=== PATIENT | female | born 1970 | race Caucasian/White ===

== ENCOUNTER → 2020-12-02 | Outpatient (CLI) | payer BC, OTHER ==
[2014-12-08 21:15] VITALS: BP 131/61
[~2020-12-02] MED LIST: ASPI-482 PO; BIOT1CAP3 PO; ESTR0.5T PO; GABA-585 PO; GUAR1TAB6 PO; HYDR25TA PO; HYDR2TAB31 PO; LACT1CAP6 PO; LEVO200T5 PO; METF10007 PO; MULT-18 PO; NITR100C62 PO; OMEP40CA45 PO; PRAV20TA2 PO; UBID200C7 PO; VITA-47 PO
--- NOTE | 2020-12-02 17:28 | RAD ---
EXAM: Maxillofacial bone CT without contrast. HISTORY: Chronic sinusitis. TECHNIQUE: Computed tomographic images of the maxillofacial bones were obtained without contrast. *One or more of the following individualized dose reduction techniques were utilized for this examina tion: 1. Automated exposure control. 2. Adjustment of the mA and/or kV according to patient size. 3. Use of iterative reconstruction technique. COMPARISON: None. FINDINGS: There is minimal mucosal thickening involving the superior medial right maxillary sinus. Th ere is slight attenuation of the ostiomeatal units. There is minimal rightward nasal septal deviation . There is no sinus opacification or air-fluid level. There is no sinus wall erosion or sinus wall th ickening. The temporomandibular joints are intact. There is mild incidental torus palatini. The orbit s and mastoid air cells are unremarkable. There is no acute finding involving the visualized brain. IMPRESSION: Minimal right maxillary sinus mucosal thickening and attenuation of the ostiomeatal units . Electronically signed by: Casie Griffith MD (12/02/2020 5:25 PM) [facility]
== END ==
LOC: CT 15:24
PROVIDERS: ATTEND Otolaryngology
DX: J32.4 Chronic pansinusitis (principal); J34.2 Deviated nasal septum; M27.0 Developmental disorders of jaws
CPT/HCPCS: 70486

== ENCOUNTER 2021-01-10 19:39 | Emergency (ER) | payer BC, OTHER ==
[~2021-01-10] VITALS: Ht 170.2 cm; Wt 75.6 kg
[2021-01-10 19:50] VITALS: BP 137/88
[2021-01-10] MEDS ORDERED: oxyCODONE/APAP 5/325 1 TAB TABLET PO ONE (20:15)
--- NOTE | 2021-01-10 20:18 | PHYS DOC ---
Past History Past Medical History: Arthritis, Diabetes, Fibromyalgia, GERD, Hypothyroid, Liver Disease, UTI, Other Past Surgical History: Hysterectomy, Other Smoking: Non-smoker Alcohol Use: Occasionally Drug Use: None Adult General Chief Complaint Chief Complaint: LOWER EXT PAIN HPI HPI Patient is a 50-year-old female with a past medical history significant for diabetes, fibromyalgia and peripheral neuropathy who presents to the emergency department with a chief complaint of tingling in her left foot. States it has been off and on for the last 3 weeks. States it is not stopping her from any daily activities but called her doctor and was told to come to the emergency department. States she also has overall generalized body pains because of her fibromyalgia. Denies any recent travel, traumas, illnesses, fevers, chest pain, shortness of breath, abdominal pain, nausea, vomiting, dysuria, hematuria, blood in the stool. Denies any other numbness/weakness/tingling/slurred speech/confusion or other strokelike symptoms. Denies any history of heart attack or stroke. States she is able to sit, stand and walk without issue but just feels tingly when she walks. States she kind of felt funny come into the ER but came because her doctor told her to. Review of Systems Review of Systems Review of systems otherwise unremarkable except noted in HPI Allergies Allergies Allergies Coded Allergies Type Severity Reaction Last Updated Verified morphine Allergy Severe SOA 12/08/14 Yes Penicillins Allergy Intermediate ITCHING 12/08/14 Yes amoxicillin Allergy Intermediate ITCHING 12/08/14 Yes Physical Exam Physical Exam Constitutional: Well developed, well nourished, no acute distress, non-toxic appearance. [] HENT: Normocephalic, atraumatic, bilateral external ears normal, oropharynx moist, no oral exudates, nose normal. [] Eyes: PERRLA, EOMI, conjunctiva normal, no discharge. [] Neck: Normal range of motion, no tenderness, supple, no stridor. [] Cardiovascular:Heart rate regular rhythm, no murmur [] Lungs & Thorax: Bilateral breath sounds clear to auscultation [] Abdomen: Bowel sounds normal, soft, no tenderness, no masses, no pulsatile masses. [] Skin: Warm, dry, no erythema, no rash. [] Back: No tenderness, no CVA tenderness. [] Extremities: No tenderness, no cyanosis, no clubbing, ROM intact, no edema. [] Neurologic: Alert and oriented X 3, normal motor function, normal sensory function, no focal deficits noted. [] Psychologic: Affect normal, judgement normal, mood normal. [] EKG EKG [] Radiology/Procedures Radiology/Procedures [] Heart Score C/O Chest Pain: No Risk Factors: Risk Factors: DM, Current or recent (<one month) smoker, HTN, HLP, family history of CAD, obesity. Risk Scores: Risk Factors: DM, Current or recent (<one month) smoker, HTN, HLP, family history of CAD, obesity. Course & Med Decision Making Course & Med Decision Making Patient is a 50-year-old female who presents with some tingling in the lower left extremity for the last couple of weeks Vital signs not concerning. Physical exam noted above. No focal neurologic deficits. Neurovascular exam intact. Patient able to sit, stand and walk without issue. Patient stated if she just had some pain relief she would probably be okay until she sees her primary care physician. Discussed all findings with patient and reassured that vital signs looked reassuring as did her exam. Patient stated she would prefer not to have any labs or anything drawn since she does agree that she is feeling okay but inquired about some pain medicine. Given Percocet in the emergency department. Advised to follow-up tomorrow with primary care physician. Gave return precautions to the ED. Patient grateful, verbalized understanding and agreed with plan of discharge. [] Dragon Disclaimer Dragon Disclaimer This electronic medical record was generated, in whole or in part, using a voice recognition dictation system. Departure Departure: Impression: Primary Impression: Numbness and tingling of leg Disposition: 01 HOME / SELF CARE / HOMELESS Condition: GOOD Referrals: JOSEMANUEL MAYER DO (PCP) Additional Instructions: Thank you for coming to the emergency department today to discuss your situation. As discussed your vital signs were reassuring. Your neurologic and vascular exams were also reassuring. You are able to sit, stand and walk without issue. You are given pain medication at your request. We discussed all your findings and came up with the plan together including following up with your primary care physician first thing tomorrow to discuss your ED visit and set up a follow-up visit. Please come back to the emergency department immedi ately with any new or concerning symptoms as discussed. DORI SAEZ MD January 10, 2021 20:18
== END 2021-01-10 20:30 | disposition home or self-care (01) ==
LOC: ER 19:39
DX: R20.0 Anesthesia of skin (principal); Z88.0 Allergy status to penicillin; Z88.6 Allergy status to analgesic agent; Z88.1 Allergy status to other antibiotic agents
CPT/HCPCS: 99282-25

== ENCOUNTER → 2021-03-25 | Outpatient (CLI) | payer BC, OTHER ==
[~2021-03-25] MED LIST changes: -OMEP40CA45 PO; +OMEP40CA7 PO
[2021-03-25 16:47] LABS: ALBUMIN 3.9 g/dL (3.4-5.0); DIRECT BILIRUBIN 0.1 mg/dL (0.0-0.2); TOTAL BILIRUBIN 0.3 mg/dL (0.2-1.0)
== END ==
LOC: LAB 15:44
PROVIDERS: ATTEND Internal Medicine Gastroenterology
DX: R94.5 Abnormal results of liver function studies (principal)
CPT/HCPCS: 36415; 80076; 86803; 87340

== ENCOUNTER → 2021-11-19 | Outpatient (CLI) | payer BC, OTHER | LOC: LAB 16:13 | PROVIDERS: ATTEND Internal Medicine Gastroenterology | DX: K75.81 Nonalcoholic steatohepatitis (NASH) (principal); K74.60 Unspecified cirrhosis of liver | CPT/HCPCS: 36415 ==

== ENCOUNTER → 2021-12-10 | Outpatient (CLI) | payer BC, OTHER ==
[2021-12-10 14:39] LABS: ALBUMIN 3.6 g/dL (3.4-5.0); DIRECT BILIRUBIN 0.1 mg/dL (0.0-0.2); TOTAL BILIRUBIN 0.2 mg/dL (0.2-1.0); TOTAL PROTEIN 6.2 g/dL (6.4-8.2)
== END ==
LOC: LAB 13:01
PROVIDERS: ATTEND Internal Medicine Gastroenterology
DX: R94.5 Abnormal results of liver function studies (principal)
CPT/HCPCS: 36415; 80076; 86803; 87340

== ENCOUNTER 2021-12-23 11:34 | Emergency (ER) | payer BC, OTHER ==
[~2021-12-23] VITALS: Ht 167.6 cm; Wt 65.9 kg
[2021-12-23] MEDS ORDERED: KETOROLAC 30 MG/ML VIAL. IM ONE (12:45)
[2021-12-23] MEDS ORDERED: DEXAMETHASONE 4 MG TABLET PO ONE (12:45)
[2021-12-23] MEDS ORDERED: traMADol 50 MG TABLET PO ONE (12:45)
[2021-12-23] MEDS ORDERED: ORPHENADRINE CITRATE 60 MG/2 ML VIAL. IM ONE (12:45)
[2021-12-23] MEDS ORDERED: TRAM50TA PO (12:48)
[2021-12-23] MEDS ORDERED: ORPH-16 PO (12:48)
--- NOTE | 2021-12-23 12:50 | PHYS DOC ---
Past History Past Medical History: Arthritis, Diabetes, Fibromyalgia, GERD, Hypothyroid, Liver Disease, UTI, Other Additional Past Medical Histor: CHRONIC PAIN, FINCH, MAST CELL DISEASE, DDD, EBV Past Surgical History: Gastric Bypass, Hysterectomy, Other Additional Past Surgical Histo: L-KNEE, spinal implant- and removal, Smoking: Non-smoker Alcohol Use: Occasionally Drug Use: None General Adult EDM: Chief Complaint: BACK PAIN OR INJURY HPI: HPI: 51-year-old female presents with report of worsening right low back pain with intermittent radiation down right leg. Patient has a history of chronic low back pain with sciatica component. Patient previously has had a nerve stimulator device which unfortunately had to be removed secondary to rejection. Patient reports she has had "whole body pain" since having the booster vaccination for COVID-19. Patient reports the pain she is experiencing is di fferent. Denies recent trauma. Denies hematuria. Patient does report feeling a "pop "while urinating a week ago. Patient denies any pain with urination or increased urinary frequency or urgency. Patient does report history of kidney stones. Reports some associated nausea but seems to occur when patient's pain is the highest. Patient is chronically on tizanidine muscle relaxer as well as tramadol which she only takes at night. Patient requesting help with the pain at this time. Review of Systems: Review of Systems: Constitutional: Denies fever or chills Eyes: Denies redness or eye pain HENT: Denies nasal congestion or sore throat Respiratory: Denies cough or shortness of breath Cardiovascular: Denies chest pain or palpitations GI: Denies abdominal pain; reports some nausea : Denies dysuria or hematuria Musculoskeletal: Reports low back pain with radiation down right leg Integument: Denies rash or skin lesions Neurologic: Denies headache, focal weakness or sensory changes; denies loss of bowel or bladder Complete systems were reviewed and found to be within normal limits, except as documented in this note. Allergies: Allergies: Allergies Coded Allergies Type Severity Reaction Last Updated Verified morphine Allergy Severe SOA 12/08/14 Yes Penicillins Allergy Intermediate ITCHING 12/08/14 Yes amoxicillin Allergy Intermediate ITCHING 12/08/14 Yes gabapentin Allergy Unknown 12/23/21 Yes Physical Exam: PE: Constitutional: Well developed, well nourished, no acute distress, non-toxic appearance HENT: Normocephalic, atraumatic Eyes: Conjunctiva normal, no discharge Neck: Normal range of motion, supple Lungs & Thorax: No respiratory distress, equal chest rise and fall Abdomen: Soft, no tenderness, no guarding/rebound tenderness/distention Skin: Warm, dry, no erythema, no rash Back: No midline tenderness, right low lumbar/sacral paraspinal discomfort, no CVA tenderness Extremities: No tenderness, ROM intact, no edema, straight leg raise normal on right Neurologic: Alert and oriented X 3, normal motor function, normal sensory function, no focal deficits noted Psychologic: Affect normal, judgment normal Current Patient Data: Vital Signs: Vital Signs Date Time Temp Pulse Resp B/P (MAP) Pulse Ox O2 Delivery O2 Flow Rate FiO2 12/23/21 11:51 97.7 68 16 103/68 (80) 98 Room Air EKG: EKG: [] Radiology/Procedures: Radiology/Procedures: [] Heart Score: C/O Chest Pain: N/A Course & Med Decision Making: Course & Med Decision Making Pertinent Lab studies reviewed. (See chart for details) Patient presents with HPI and physical exam consistent for acute on chronic low back pain. Patient did report some urinary symptoms previously. UA therefore obtained and unremarkable. Patient reports has been worsening over the last several weeks. Denies loss of bowel or bladder. Symptomatic treatment provided. Oral steroid and tramadol provided. IM shots of Norflex and Toradol also provided. Patient takes tramadol at night but will require a new prescription. Will exchange patient's tizanidine for Norflex. Will not prescribe further steroids as patient recently had a taper dose of prednisone approximately 10 days ago. Patient stable for discharge with outpatient follow-up with PCP/pain management. Pain management referral provided. Discussed findings and plan with patient, who acknowledges understanding and agreement. Kate Disclaimer: Kate Disclaimer: This electronic medical record was generated, in whole or in part, using a voice recognition dictation system. Departure Departure: Impression: Primary Impression: Acute exacerbation of chronic low back pain Disposition: HOME / SELF CARE / HOMELESS Condition: STABLE Referrals: JOSEMANUEL MAYER DO (PCP) Patient Instructions: Back Pain, Adult, [id number], Chronic Back Pain Additional Instructions: Call Dr. Bernard Gray (pain management) for further evaluation and treatment. [id number] [facility] [address], [address] [place] [address] Scripts Tramadol Hcl (TRAMADOL HCL) 50 Mg Tablet 50 MG PO PRN Q6HRS PRN for PAIN, #20 TAB Prov: KARLA MARCIAL DO 12/23/21 Orphenadrine Citrate (ORPHENADRINE CITRATE) 100 Mg Tablet.er 1 TAB PO BID PRN for MUSCLE PAIN, #14 TAB 0 Refills Prov: KARLA MARCIAL DO 12/23/21 KARLA MARCIAL DO December 23, 2021 12:50
[2021-12-23 13:34] LABS: CLARITY,URINE CLEAR; COLOR,URINE YELLOW; GLUCOSE,URINE NEG (NEG)
[2021-12-23 13:35] LABS: BACTERIA,URINE 0 /HPF (0-FEW); NITRITE,URINE NEG (NEG); RBC,URINE 0 /HPF (0-2); SQUAMOUS EPITHELIAL CELL,UR OCC /LPF; UROBILINOGEN,URINE 0.2 mg/dL (0.2 mg/dL); WBC,URINE OCC /HPF (0-4)
[2021-12-23 13:45] VITALS: BP 108/70
== END 2021-12-23 13:51 | disposition home or self-care (01) ==
LOC: ER 11:34
DX: G89.29 Other chronic pain (principal); M54.50 Low back pain, unspecified; M19.90 Unspecified osteoarthritis, unspecified site; E11.9 Type 2 diabetes mellitus without complications; M79.7 Fibromyalgia; K21.9 Gastro-esophageal reflux disease without esophagitis; E03.9 Hypothyroidism, unspecified; Z87.440 Personal history of urinary (tract) infections; Z98.84 Bariatric surgery status; Z90.710 Acquired absence of both cervix and uterus; Z88.5 Allergy status to narcotic agent; Z88.0 Allergy status to penicillin; Z88.1 Allergy status to other antibiotic agents; Z88.8 Allergy status to other drugs, medicaments and biological substances
CPT/HCPCS: 81001; 96372; 99284; J1885; J2360; J8540